=== PATIENT | female | born 1995 | race Caucasian/White ===

== ENCOUNTER 2020-07-17 16:21 | Emergency (ER) | payer MEDICAID ==
[~2020-07-17] VITALS: Ht 157.5 cm; Wt 48.5 kg
[2020-07-17 16:45] VITALS: BP 113/57
--- NOTE | 2020-07-17 17:02 | NUR ---
Patient discharged to home in stable condition. Written and verbal after care instructions given. Patient verbalizes understanding of instruction. Pt ambulatory with a steady gait
== END 2020-07-17 17:06 | disposition home or self-care (01) ==
LOC: ER 16:21
DX: T19.2XXA Foreign body in vulva and vagina, initial encounter (principal); W45.8XXA Other foreign body or object entering through skin, initial encounter; Y93.89 Activity, other specified; Y92.89 Other specified places as the place of occurrence of the external cause; Y99.8 Other external cause status